=== PATIENT | male | born 1975 | race African-American/Black ===

== ENCOUNTER 2024-08-29 22:19 | Inpatient (IN) | payer OTHER ==
[2024-08-29 22:44] VITALS: BMI 28.8
[2024-08-30] MEDS ORDERED: BENZOCAINE/MENTHOL (CHLORASEPTIC ) LOZENGE MM PRN (00:28)
[2024-08-30] MEDS ORDERED: BENZONATATE 200 MG CAPSULE PO PRN (00:28)
[2024-08-30] MEDS ORDERED: LOPERAMIDE HCL 2 MG CAPSULE PO PRN (00:28)
[2024-08-30] MEDS ORDERED: MAGNESIUM HYDROX 2400MG/30ML ORAL SUSPENSION 30 ML CUP PO PRN (00:28)
[2024-08-30] MEDS ORDERED: IBUPROFEN 600 MG TABLET (FP) PO PRN (00:28)
[2024-08-30] MEDS ORDERED: hydrOXYzine PAMOATE 25 MG CAPSULE (FP) PO PRN (00:28)
[2024-08-30] MEDS ORDERED: POLYETHYLENE GLYCOL (HEALTHYLAX) 3350 17 GM PACKET PO PRN (00:28)
[2024-08-30] MEDS ORDERED: MAG HYDROX/AL HYDROX/SIMETH 30 ML UNIT-DOSE CUP PO PRN (00:28)
[2024-08-30] MEDS ORDERED: IBUPROFEN 400 MG TABLET (FP) PO PRN (00:28)
[2024-08-30] MEDS ORDERED: ACETAMINOPHEN 325 MG TABLET (FP) PO PRN (00:28)
[2024-08-30] MEDS ORDERED: NALOXONE (NARCAN) HCL 4 MG/0.1 ML SPRAY NS PRN (00:28)
[2024-08-30] MEDS ORDERED: guaiFENesin 600 MG TABLET.ER (FP) PO PRN (00:28)
[2024-08-30] MEDS: PRENATAL VITAMINS W/ FOLIC ACID TABLET (FP) PO SCH (11:07)
[2024-08-30] MEDS: THIAMINE 100 MG TABLET PO SCH (21:17)
[2024-08-30] MEDS: MELATONIN 5 MG TABLETS PO SCH (21:17)
[2024-08-31 17:33] LABS: HEMATOCRIT 38.5 % (40.1-51.0); HEMOGLOBIN 12.3 g/dL (13.7-17.5); MCHC 31.9 g/dl (32.3-36.5); MEAN CELL VOLUME 89.7 fl (79.0-92.2); MEAN PLT VOLUME 12.2 fl (9.4-12.4); PLATELET COUNT 255 x10^3/uL (163-337); RDW 13.2 % (12.1-15.9)
[2024-08-31 17:41] LABS: INR 1.11 (0.83-1.09); PROTHROMBIN TIME (PATIENT) 12.1 SEC (9.7-13.0)
[2024-09-01 05:41] VITALS: RESP 16
[2024-09-01 16:04] LABS: POTASSIUM 4.3 mmol/L (3.5-5.1)
[2024-09-01 16:10] LABS: CALCIUM 9.3 mg/dL (8.5-10.1)
[2024-09-01 16:11] LABS: ALBUMIN 3.4 g/dl (3.4-5.0); BLOOD UREA NITROGEN 12.2 mg/dL (7-18)
[2024-09-01 16:14] LABS: CREATININE 1.1 mg/dL (0.55-1.3)
[2024-09-01 16:15] LABS: BILIRUBIN,TOTAL 0.4 mg/dL (0.2-1); TOT PROT 6.8 g/dl (6.4-8.2)
[2024-09-02 06:01] VITALS: TEMP 97.3
[2024-09-03 05:35] VITALS: BP 120/85; PULSE 71
== END 2024-09-03 10:33 | disposition home or self-care (01) | DRG 772 ==
LOC: YASAS 22:19 → Y3W 08-30 01:05
PROVIDERS: ADMIT Family Medicine; ATTEND Psychiatry & Neurology Pain Medicine
PROC: HZ42ZZZ Group Counseling for Substance Abuse Treatment, Cognitive-Behavioral (ICD-10-PCS; principal; 2024-08-30)
DX: F10.20 Alcohol dependence, uncomplicated (principal); F31.9 Bipolar disorder, unspecified; F41.9 Anxiety disorder, unspecified; E11.9 Type 2 diabetes mellitus without complications; Z79.84 Long term (current) use of oral hypoglycemic drugs; Z87.891 Personal history of nicotine dependence
CPT/HCPCS: 36415; 80053; 80305; 80307; 82140; 82962; 83735; 85027; 85610; 86780; 87811; 93005; 93010